=== PATIENT | male | born 2000 | race Two or more races ===

== ENCOUNTER 2023-07-08 22:57 | Emergency (ER) | payer BC, SELFPAY ==
[2023-07-08 22:59] VITALS: BP 142/82; PULSE 88; RESP 18; TEMP 36.3; O2SAT 99
--- NOTE | 2023-07-09 00:11 | ECG_ITS ---
Measurements Intervals [place] Rate: 79 P: 18 MI: 136 QRS: 29 QRSD: 105 T: 25 QT: 353 QTc: 406 Interpretive Statements SINUS RHYTHM NORMAL ECG NO PREVIOUS ECG AVAILABLE FOR COMPARISON Electronically Signed On 07-09-2023 14:04:17 CLINICAL ADMINISTRATOR by Eldon Avilez M.D.
[2023-07-09 02:43] LABS: Basophils Absolute Auto 0.1 K/mm3 (0.0-0.1); Basophils Percent Auto 0.5 % (0.2-1.2); Eosinophils Absolute Auto 0.1 K/mm3 (0-0.3); Eosinophils Percent Auto 0.7 % (0-4.4); Hematocrit 42.7 % (42.0-52.0); Hemoglobin 14.5 g/dL (14.0-18.0); Immature Granulocyte Absolute 0.03 K/mm3 (0.00-0.031); Immature Granulocyte Percent A 0.3 % (0-0.5); Lymphocytes Absolute Auto 3.73 K/mm3 (0.9-3.2); Mean Corpuscular Hemoglobin 29.3 pg (26-34); Mean Corpuscular Volume 86.3 fl (80-100); Mean Platelet Volume 9.2 fl (7.4-10.4); Monocytes Absolute Auto 0.6 K/mm3 (0.1-0.6); Monocytes Percent Auto 6.2 % (2.6-8.5); Neutrophils Absolute Auto 5.3 K/mm3 (1.3-6.7); Neutrophils Percent Auto 54.3 % (45.5-73.1); Platelet Count Result 375 k/mm3 (150-375); Red Blood Count 4.95 M/mm3 (4.6-6.20); Red Cell Distribution Width 12.4 % (11.5-14.5); White Blood Count 9.8 K/mm3 (4.5-10.0)
--- NOTE | 2023-07-09 02:46 | ED.GENADULT ---
HPI - General Adult General Chief complaint: Dizziness Stated complaint: dizzy x1 week Time Seen by Provider: 07/09/23 02:37 History of Present Illness HPI narrative: patient with a 22-year-old gentleman presents emerged from with chief complaint of dizziness. The patient reports that a week ago he ate a marijuana Brownie and since then has been having episodes of vertiginous symptoms. The patient states that as this sensation of the room spinning the patient reports that it is doing little better since he has arrived here in the emergency department. Patient denies vomiting denies diarrhea denies fever Related Data Allergies Allergy/AdvReac Type Severity Reaction Status Date / Time No Known Allergies Allergy Verified 07/08/23 23:02 Review of Systems Review of Systems: A 10 system review of systems was completed on the patient and is negative except for what is stated in the HPI. Nursing and ancillary documentation was reviewed. Exam Narrative: GENERAL: Well-appearing, well-nourished, and in no acute distress. HEAD: Normocephalic, atraumatic. EYES: PERRLA and EOMI. ENT: Nares clear, no rhinorrhea or epistaxis. Mucous membranes moist. NECK: Supple. CHEST: Clear to auscultation. No respiratory distress. HEART: Regular rate and rhythm. No murmur heard. Normal peripheral pulses. ABDOMEN: Soft, nontender, nondistended, normal active bowel sounds. EXTREMITIES: Normal range of motion. No edema. SKIN: Warm, dry, no rash. NEURO: No focal deficits. Alert and oriented x3. positive Hallpike to the right PSYCH: Normal mood and affect. Course Vital Signs Vital signs: Vital Signs Temperature 36.3 C L 07/08/23 22:59 Pulse Rate 88 07/08/23 22:59 Respiratory Rate 18 07/08/23 22:59 Blood Pressure 142/82 H 07/08/23 22:59 Pulse Oximetry 99 07/08/23 22:59 Oxygen Delivery Room Air 07/08/23 22:59 Temperature 36.3 C L 07/08/23 22:59 Pulse Rate 88 07/08/23 22:59 Respiratory Rate 18 07/08/23 22:59 Blood Pressure 142/82 H 07/08/23 22:59 Pulse Oximetry 99 07/08/23 22:59 Oxygen Delivery Room Air 07/08/23 22:59 Medical Decision Making Vital Signs Vital Signs: Vital Signs Temperature 36.3 C L 07/08/23 22:59 Pulse Rate 88 07/08/23 22:59 Respiratory Rate 18 07/08/23 22:59 Blood Pressure 142/82 H 07/08/23 22:59 Pulse Oximetry 99 07/08/23 22:59 Oxygen Delivery Room Air 07/08/23 22:59 Temperature 36.3 C L 07/08/23 22:59 Pulse Rate 88 07/08/23 22:59 Respiratory Rate 18 07/08/23 22:59 Blood Pressure 142/82 H 07/08/23 22:59 Pulse Oximetry 99 07/08/23 22:59 Oxygen Delivery Room Air 07/08/23 22:59 Lab Data 07/09/23 00:59 07/09/23 00:59 Labs: Lab Results 07/09/23 Range/Units 00:59 WBC 9.8 (4.5-10.0) K/mm3 RBC 4.95 (4.6-6.20) M/mm3 Hgb 14.5 (14.0-18.0) g/dL Hct 42.7 (42.0-52.0) % MCV 86.3 (80-100) fl MCH 29.3 (26-34) pg MCHC 34.0 (32-36) g/dl RDW 12.4 (11.5-14.5) % Plt Count 375 (150-375) k/mm3 MPV 9.2 (7.4-10.4) fl Immature Gran % (Auto) 0.3 (0-0.5) % Neut % (Auto) 54.3 (45.5-73.1) % Lymph % (Auto) 38.0 (18.3-44.2) % [place] % (Auto) 6.2 (2.6-8.5) % Eos % (Auto) 0.7 (0-4.4) % Baso % (Auto) 0.5 (0.2-1.2) % Lymph # (Auto) 3.73 H (0.9-3.2) K/mm3 [place] # (Auto) 0.6 (0.1-0.6) K/mm3 Eos # (Auto) 0.1 (0-0.3) K/mm3 Baso # (Auto) 0.1 (0.0-0.1) K/mm3 Abs Immat Gran (auto) 0.03 (0.00-0.031) K/mm3 Absolute Neuts (auto) 5.3 (1.3-6.7) K/mm3 Absolute Nucleated RBC 0.0 (0.0-0.012) K/mm3 Nucleated RBC % 0.0 (0.0-0.2) % Sodium 135 L (137-145) mmol/L Potassium 3.2 L (3.4-5.0) mmol/L Chloride 108 H (98-107) mmol/L Carbon Dioxide 25 (22-30) mmol/L Anion Gap 2 L (8-16) mmol/L BUN 14 (9-20) mg/dL Creatinine 0.80 (0.7-1.3) mg/dL Estim Creat Clear Calc 145 ml/min Estimated GFR > 60 (59 - ) Glucose 165 H (65-110) mg/dL
[2023-07-09 02:48] LABS: Alanine Aminotransferase 66 U/L (6-50); Albumin Level 4.5 g/dL (3.5-5.1); Alkaline Phosphatase 64 U/L (38-126); Anion Gap 2 mmol/L (8-16); Aspartate Amino Transferase 51 U/L (17-59); Bilirubin,Total 0.8 mg/dL (0.2-1.3); Blood Urea Nitrogen 14 mg/dL (9-20); Calcium 9.6 mg/dL (8.4-10.2); Carbon Dioxide 25 mmol/L (22-30); Chloride 108 mmol/L (98-107); Estimated CRCL calculation 145 ml/min; Estimated Glomerular Filt Rate > 60; Glucose 165 mg/dL (65-110); Potassium 3.2 mmol/L (3.4-5.0); Sodium 135 mmol/L (137-145)
[2023-07-09 04:32] VITALS: BP 138/78; PULSE 80; RESP 16; O2SAT 100
== END 2023-07-09 04:32 | disposition home or self-care (01) ==
LOC: ANHED 07-09 03:28
PROVIDERS: Emergency Provider Emergency Medicine
DX: R42 Dizziness and giddiness (principal)
CPT/HCPCS: 36415; 80053; 85025; 93005; 99283